=== PATIENT | male | born 1970 | race Caucasian/White ===

== ENCOUNTER 2016-11-24 21:01 | Emergency (ER) | payer BC ==
[2016-11-24] MEDS ORDERED: Aspirin 81 MG Tab.Chew ONE (21:11)
[2016-11-24] MEDS ORDERED: Aspirin 81 MG Tab.Chew PO ONE (21:15)
[2016-11-24 21:50] VITALS: BP 130/80
[2016-11-24] MEDS ORDERED: Sodium Chloride 0.9% 1,000 ML IV ONE (22:18)
[2016-11-24] MEDS ORDERED: Enoxaparin 100 MG/1 ML Syringe SUBCUT ONE (22:30)
--- NOTE | 2016-11-24 22:39 | EDM.PDOC ---
ED HPI GENERAL MEDICAL PROBLEM - General Chief Complaint: Respiratory Problem Stated Complaint: SHORTNESS OF BREATH Time Seen by Provider: 11/24/16 21:05 Source of Information: Reports: Patient, Family () History Limitations: Reports: No Limitations - History of Present Illness INITIAL COMMENTS - FREE TEXT/NARRATIVE: 46-year-old male presents to emergency room brought in today by his with complaints of shortness of breath over the past 48 hours. Patient states that he had surgery on his left leg this past Saturday. He had a repair of his Achilles tendon. Surgery was successful and uneventful. He's been on crutches and is in a well-padded posterior splint. Over the last 48 hours he has noticed increasing shortness of breath and this seems to have worsened. He has no chest pain. He has no palpitations. He has no nausea or vomiting. He has no abdominal pain. He reports no back pain or shoulder pain. He reports no headache. Upon presentation his O2 saturation was 89% on room air. He was placed on 2 L of oxygen nasal cannula and his O2 saturations improved up to 95%. He was tachycardic heart rate was 102-118. His blood pressures were running in the 137/ 93. His respirations were 14. Patient denies any history of coronary artery disease, [place]. There is no family history of heart disease that he is aware of. He has donated one kidney to his son many years ago. He is not had any renal problems. Other than repair of his Achilles tendon he has no significant pain in his left leg or thigh. Onset: Gradual Onset Date: 11/23/16 Duration: Hour(s): (48 hours) Location: Reports: Chest Severity: Moderate Improves with: Reports: None Worsens with: Reports: None Context: Reports: Other (recent surgery left Achilles tendon repair) Associated Symptoms: Reports: Shortness of Breath. Denies: Confusion, Chest Pain, Cough, Diaphoresis, Fever/Chills, Headaches, Nausea/Vomiting, Syncope, Weakness - Related Data Allergies Allergy/AdvReac Type Severity Reaction Status Date / Time No Known Allergies Allergy Verified 11/24/16 21:13 Home Meds: Home Meds Aspirin/Calcium Carbonate/Mag [Aspirin Buffered 325 mg Tab] 325 mg PO DAILY [History] Hydrocodone/Acetaminophen [Hydrocodon-Acetaminoph 7.5-325] 1 oz PO Q4HR PRN 12/02 [History] Meloxicam [Meloxicam] 15 mg PO DAILY 11/24/16 [History] Past Medical History Genitourinary History: Reports: Renal Calculus, Other (See Below) Other Genitourinary History: Patient only has one kidney, donated one to his son - Past Surgical History HEENT Surgical History: Reports: Other (See Below) Social & Family History - Tobacco Use Smoking Status *Q: Never Smoker Second Hand Smoke Exposure: No - Caffeine Use Caffeine Use: Reports: Coffee - Recreational Drug Use Recreational Drug Use: No ED ROS GENERAL - Review of Systems Review Of Systems: See Below Constitutional: Denies: Fever, Chills, Weakness, Fatigue, Diaphoresis HEENT: Reports: No Symptoms Respiratory: Reports: Shortness of Breath. Denies: Wheezing, Cough, Sputum, Hemoptysis Cardiovascular: Denies: Chest Pain, Blood Pressure Problem, Lightheadedness, Orthopnea, Palpitations, Syncope Endocrine: Reports: No Symptoms GI/Abdominal: Reports: No Symptoms : Reports: No Symptoms Musculoskeletal: Reports: No Symptoms Skin: Denies: Cyanosis, Diaphoresis Neurological: Denies: Confusion, Dizziness, Headache, Syncope, Trouble Speaking Psychiatric: Reports: No Symptoms Hematologic/Lymphatic: Reports: No Symptoms ED EXAM, GENERAL - Physical Exam Exam: See Below Exam Limited By: No Limitations General Appearance: Alert, WD/WN, No Apparent Distress Ears: Normal External Exam Nose: Normal Inspection Throat/Mouth: Normal Inspection, Normal Oropharynx, Normal Voice, No Airway Compromise Head: Atraumatic, Normocephalic (well that's free seriously bone) Neck: Normal Inspection ( revisits us), Supple, Non-Tender, Full Range of Motion Respiratory/Chest: No Respiratory Distress, Lungs Clear, Normal Breath Sounds, No Accessory Muscle Use (he is Karen thinks he has been coming Carl drank almost between 12 and 18 beers yesterday and had 3 or 4 beers this morning 30 please All the electrolyte is critically low percent critical limits. Severe hypokalemia given in the serious cramping legs and everything and an additional nausea vomiting hypokalemiaCharles like he's getting easier facilities at 48 hours before he goes yesterday he's he's completely dehydrated and electrolyte balance from alcoholism he will go through DTs but he is going Rocio) Cardiovascular: No JVD, No Murmur, Tachycardia Peripheral Pulses: 2+: Carotid (L), Carotid (R) GI/Abdominal: Soft, Non-Tender, No Abnormal Bruit, Other (well-healed incision vertigo below the umbilicus) Back Exam: Normal Inspection Extremities: Normal Inspection, No Pedal Edema, Other (posterior splint well- padded left ankle) Neurological: Alert, Oriented Psychiatric: Normal Affect, Normal Mood Skin Exam: Warm, Dry, Intact, Normal Color, No Rash Lymphatic: No Adenopathy EKG INTERPRETATION EKG Date: 11/24/16 Time: 21:10 Rhythm: Other (sinus tachycardia) Rate (Beats/Min): 110 P-Wave: Enlarged QRS: RBBB ST-T: Elevated QT: Normal Comparison: NA - No Prior EKG EKG Interpretation Comments: Sinus tachycardia Possible left atrial enlargement Incomplete right bundle branch block Possible inferior infarct age undetermined Abnormal ECG Course - Vital Signs Last Recorded V/S: Last Vital Signs Temp 98.3 F 11/24/16 21:05 Pulse 104 H 11/24/16 21:49 Resp 18 11/24/16 21:49 BP 130/80 11/24/16 21:49 Pulse Ox 95 11/24/16 21:49 - Orders/Labs/Meds Orders: Active Orders 24 hr Category Date Time Status EKG Documentation Completion [RC] ASDIRECTED Care 11/24/16 21:15 Active Chest w Cont [CT] Stat Exams 11/24/16 21:22 Ordered Sodium Chloride 0.9% [Normal Saline] 1,000 ml Med 11/24/16 22:18 Active IV .BOLUS EKG 12 Lead [EK] Routine Ther 11/24/16 21:14 Ordered Medication Orders Sodium Chloride (Normal Saline) 1,000 mls @ 999 mls/hr IV .BOLUS ONE Stop: 11/24/16 23:18 Last Admin: 11/24/16 22:15 Dose: 999 mls/hr Labs: Laboratory Tests 11/24/16 11/24/16 11/24/16 Range/Units 21:20 21:20 21:20 WBC 12.1 H (5.0-10.0) 10^3/uL RBC 5.10 (4.50-6.00) 10^6/uL Hgb 15.7 (13.0-17.0) g/dL Hct 45.8 (40.0-52.0) % MCV 90.0 (82.0-92.0) fL MCH 30.9 (27.0-31.0) pg MCHC 34.3 (32.0-36.0) g/dL RDW 12.1 (11.5-14.5) % Plt Count 323 H (150-300) 10^3/uL MPV 6.8 L (7.4-10.4) fL Neut % (Auto) 65.0 (50.0-70.0) % Lymph % (Auto) 24.6 (20.0-40.0) % Griggs % (Auto) 7.6 (2.0-8.0) % Eos % (Auto) 2.6 (1.0-3.0) % Baso % (Auto) 0.2 (0.0-1.0) % Neut # (Auto) 7.9 H (2.5-7.0) 10^3/uL Lymph # (Auto) 3.0 (1.0-4.0) 10^3/uL Griggs # (Auto) 0.9 H (0.1-0.8) 10^3/uL Eos # (Auto) 0.3 (0.1-0.3) 10^3/uL Baso # (Auto) 0.0 (0.0-0.1) 10^3/uL D-Dimer, Quantitative 4070 H (<400) ng/mL Sodium 140 (136-145) mmol/L Potassium 4.0 (3.3-5.3) mmol/L Chloride 103 (98-115) mmol/L Carbon Dioxide 22.5 (21.0-32.0) mmol/L BUN 16 (6-25) mg/dL Creatinine 1.50 H (0.51-1.17) mg/dL Est Cr Clr Drug Dosing 64.89 mL/min Estimated GFR (MDRD) 51 mL/min Glucose 103 (70-110) mg/dL Calcium 9.2 (8.7-10.3) mg/dL Troponin I 0.22 H* (0.00-0.070) ng/mL Meds: Medications Generic Name Dose Route Start Last Admin Trade Name Freq PRN Reason Stop Dose Admin Sodium Chloride 1,000 mls @ 999 mls/hr 11/24/16 22:18 11/24/16 22:15 Normal Saline IV 11/24/16 23:18 999 mls/hr .BOLUS ONE Administration Discontinued Medications Generic Name Dose Route Start Last Admin Trade Name Harvey PRN Reason Stop Dose Admin Aspirin Confirm 11/24/16 21:11 11/24/16 21:35 Aspirin Administered 11/24/16 21:12 Not Given Dose 324 mg .ROUTE .STK-MED ONE Aspirin 324 mg 11/24/16 21:15 11/24/16 21:10 Aspirin PO 11/24/16 21:16 324 mg ONETIME ONE Administration Enoxaparin Sodium 100 mg 11/24/16 22:30 Lovenox SUBCUT 11/24/16 22:31 ONETIME ONE - Re-Assessments/Exams Free Text/Narrative Re-Assessment/Exam: 11/24/16 22:48 Patient reports that he is comfortable. He is stable. He has no pain. Shortness of breath continues Free Text/Narrative Re-Assessment/Exam: 11/24/16 22:49 Normal saline running at 1000 mL an hour IV Lovenox 100 mg subcutaneous given Heart and lungs were reassessed lungs were clear throughout auscultation bilaterally. Heart rate slightly tachycardic with no murmur Departure - Departure Time of Disposition: 22:40 Disposition: DC/Tfer to [facility] Condition: Fair Clinical Impression: Elevated troponin, Status post Achilles tendon repair, Postoperative hypoxia, Tachycardia with heart rate 100-120 beats per minute, Abnormal EKG - Discharge Information Referrals: Carolina Deal MD [Primary Care Provider] - Forms: ED Department Discharge, Interfacility Transfer RONALD - My Orders Last 24 Hours: My Active Orders 11/24/16 21:14 EKG 12 Lead [EK] Routine 11/24/16 21:15 EKG Documentation Completion [RC] ASDIRECTED 11/24/16 21:22 Chest w Cont [CT] Stat 11/24/16 22:18 Sodium Chloride 0.9% [Normal Saline] 1,000 ml IV .BOLUS - Assessment/Plan Last 24 Hours: My Active Orders 11/24/16 21:14 EKG 12 Lead [EK] Routine 11/24/16 21:15 EKG Documentation Completion [RC] ASDIRECTED 11/24/16 21:22 Chest w Cont [CT] Stat 11/24/16 22:18 Sodium Chloride 0.9% [Normal Saline] 1,000 ml IV .BOLUS Assessment:: Postoperative hypoxia Tachycardia Abnormal EKG Elevated troponin Status post left Achilles repair in splint immobilization Plan: Patient's laboratory findings are highly suggestive of a postoperative blood clot. Patient has abnormal EKG which shows sinus tachycardia and possible left atrial enlargement with an incomplete right bundle branch block and ST elevation changes which could be suggestive of also pulmonary embolism or [place]. Patient's d-dimer was over 4000. He was tachycardic and short of breath and hypoxic. He responded well to O2 via nasal cannula and 2 L of oxygen. His O2 saturations with oxygen remained in the 95%. He was stable. Recommended transfer with elevated troponin levels shortness of breath tachycardic and EKG changes. Patient was accepted at [facility]. I discussed these findings with the patient and . They are gradients for transfer and treatment. He was started with 1 L normal saline running at 1000 mL an hour. He was given 100 mg of Lovenox subcutaneous. He was stable and was transferred by ALS.
== END 2016-11-24 22:35 | disposition critical access hospital (66) ==
LOC: KA.ED 21:01
DX: R00.0 Tachycardia, unspecified (principal); I45.10 Unspecified right bundle-branch block; R94.31 Abnormal electrocardiogram [ECG] [EKG]; R09.02 Hypoxemia; R79.89 Other specified abnormal findings of blood chemistry; Z79.82 Long term (current) use of aspirin; Z87.442 Personal history of urinary calculi; Z98.890 Other specified postprocedural states
CPT/HCPCS: 80048; 84484; 85025; 85379; 96372; 99285; A9270; J1650; J7030; 93005